=== PATIENT | male | born 1985 | race African-American/Black ===

== ENCOUNTER 2020-12-29 18:38 | Emergency (ER) | payer SELFPAY ==
--- NOTE | ~2020-12-29 | XR_ITS ---
EXAMINATION: CHEST 2 VIEWS CLINICAL INFORMATION: CP . COMPARISON: No recent pertinent prior studies are available for comparison. TECHNIQUE: PA and lateral views of the chest obtained. FINDINGS: The lungs are well expanded. No focal infiltrate, effusion, edema, or pneumothorax. Cardiac and mediastinal silhouettes are within normal limits for technique. No acute bony abnormality seen XR/XR chest 1V IMPRESSION: No evidence of acute disease
--- NOTE | ~2020-12-29 | CT_ITS ---
EXAMINATION: CT ABDOMEN AND PELVIS WITHOUT CONTRAST CLINICAL INFORMATION: Abdominal pain. Hematuria. COMPARISON: None TECHNIQUE: Multidetector volumetric imaging was performed from the superior aspect of the liver through the pubic symphysis. Sagittal and coronal reformatted images were obtained on the technologist's workstation. This CT examination was performed using dose optimization techniques as appropriate, variously including the following: *Automated exposure control *Adjustment of mA and/or kV according to patient size (this includes techniques or standardized protocols for targeted exams where dose is matched to indication/reason for exam; i.e. extremities or head) *Use of iterative reconstruction technique DLP: 331 mGy-cm FINDINGS: LUNG BASES: The visualized lung bases are unremarkable. LIVER, GALLBLADDER, AND BILIARY TREE: The liver is normal in size, shape, and attenuation. No focal hepatic lesion or biliary ductal dilatation is present. Status post cholecystectomy PANCREAS: Unremarkable. SPLEEN: Unremarkable. ADRENAL GLANDS: Unremarkable. KIDNEYS AND URETERS: There is a 2 mm stone in the upper pole of left kidney. Coronal image 70/110 series 7. There is no stone in the right kidney. There is a 1 cm cortical cyst midpole right kidney. No follow-up imaging is recommended for simple renal cyst. No ureteral stone or hydronephrosis. BLADDER: Unremarkable. GASTROINTESTINAL TRACT: The small and large bowel are unremarkable. The appendix is unremarkable. ABDOMINAL WALL: No significant hernia is appreciated. LYMPH NODES: Normal. VASCULAR: Unremarkable. PELVIC VISCERA: Coarse calcifications within the prostate. Prostate measures 4 cm transverse. OSSEOUS STRUCTURES: Unremarkable. CT/CT abdomen pelvis wo con IMPRESSION: 1. No acute abnormality the abdomen or pelvis. 2. There is a 2 mm nonobstructive stone in the left kidney. There are no ureteral calculi and there is no hydronephrosis. Bladder is unremarkable.
[2020-12-29 18:50] VITALS: BMI 23.0
--- NOTE | 2020-12-29 18:51 | ECG_ITS ---
Test Reason : CHEST PAIN Blood Pressure : / mmHG Vent. Rate : 074 BPM Atrial Rate : 074 BPM P-R Int : 154 ms QRS Dur : 088 ms QT Int : 366 ms P-R-T Axes : 068 064 052 degrees QTc Int : 406 ms Normal sinus rhythm Normal ECG No previous ECGs available Referred By: Generic ED Physician Electronically Signed By:ROSELINE EID
[2020-12-29 19:05] LABS: MANUAL DIFF FLAG NO
[2020-12-29 19:09] LABS: Basophils Percent Auto 0.3 % (0-2); Eosinophils Absolute Auto 0.1 X10*3/uL (0.0-0.4); Eosinophils Percent Auto 1.5 % (0-4); Hematocrit 43.2 % (42-52); Hemoglobin 15.3 g/dl (14.0-18.0); Lymphocytes Absolute Auto 0.8 X10*3/uL (1.2-4.9); Lymphocytes Percent Auto 25.8 % (20-40); Mean Corpuscular HGB Conc 35.4 g/dl (31.0-36.0); Mean Corpuscular Hemoglobin 31.4 pg (27.0-33.0); Mean Corpuscular Volume 88.7 fL (80-98); Mean Platelet Volume 9.7 fL (9.4-12.4); Monocytes Absolute Auto 0.5 X10*3/uL (0.1-1.2); Monocytes Percent Auto 14.7 % (2-11); Neutrophils Absolute Auto 1.9 X10*3/uL (2.0-8.3); Neutrophils Percent Auto 57.7 % (45-73); Platelet Count 179 X10*3/uL (160-400); Red Blood Count 4.87 X10*6/uL (4.60-5.80); Red Cell Distribution Width 12.2 % (11.0-16.0); White Blood Count 3.3 X10*3/uL (4.8-10.8)
[2020-12-29 19:19] VITALS: BP 106/66; PULSE 73; RESP 16; TEMP 37.2; O2SAT 99; BMI 20.9
[2020-12-29 19:37] LABS: Anion Gap 13 (12-20); Blood Urea Nitrogen 12 mg/dL (9-16); Calcium 9.4 mg/dL (8.4-10.2); Carbon Dioxide 27 mmol/L (22-29); Chloride 104 mmol/L (96-108); Creatinine Clr Calc Pharmacy 96.9; Estimated Glomerular Filt Rate > 60; Glucose Random 102 mg/dL (60-115); Potassium 4.1 mmol/L (3.3-5.1); Sodium 140 mmol/L (135-145)
[2020-12-29 19:43] LABS: Troponin-I High Sensitivity < 3.5 ng/L (<3.5-35.0)
[2020-12-29 22:16] LABS: Glucose Urine UA NEG (NEG); Leukocyte Esterase Urine NEG (NEG); Nitrite Urine NEG (NEG); UACC Culture Trigger NO; Urine Blood 1+ (NEG); Urine Ketones NEG (NEG); Urine Protein NEG (NEG-TRACE)
[2020-12-29 22:19] LABS: Appearance Urine CLEAR; Color Urine YELLOW
[2020-12-29 22:22] LABS: Bacteria Urine 1+ /LPF; Mucus Urine 1+ /LPF; Squamous Epithelial Cell Urine 1+ /LPF
--- NOTE | 2020-12-29 22:31 | ED_ITS ---
HPI - Chest Pain General Chief Complaint: Chest Pain Stated Complaint: cp Source: patient Mode of arrival: ambulatory Limitations: no limitations History of Present Illness HPI narrative: 35-year-old male presents with diffuse chest pain that started earlier today that gets worse on inspiration. Has had lower abdominal pain for a year however states that his lower back pain on the right side has been persistent and increasing in intensity over the past few days. He does not report any loss of balance, change in vision, palpitations, shortness of breath on exertion, edema, abdominal distention, nausea, vomiting, diarrhea, constipation, or any other concerning symptoms. MD complaint: chest pain Onset (ago): day(s) Timing of current episode: episodic Prior episodes: Yes Pain location: other (Diffuse) Pain radiation: none Severity: moderate Quality: aching Relieving factors: nothing Treatment prior to arrival: none Risk Factors Coronary artery disease risk factors: none Thoracic aortic dissection risk factors: none Related Data Previous Rx's Medication Instructions Recorded ketorolac 10 mg tablet 10 mg PO TID PRN 5 Days #15 tab 12/30/20 tamsulosin 0.4 mg capsule (Flomax) 0.4 mg PO DAILY 14 Days #14 cap 12/30/20 Allergies Allergy/AdvReac Type Severity Reaction Status Date / Time No Known Allergies Allergy Verified 12/29/20 18:51 Review of Systems Review of Systems: Constitutional: Positive Fever, No Chills ENT/Mouth: No Ear Pain, No Hoarseness, No sore throat Eyes: No Eye Pain, No Swelling, No Redness, No Foreign Body Cardiovascular: Positive Chest Pain, No SOB Respiratory: No Cough, No Dyspnea Gastrointestinal: Positive Nausea, No Vomiting, No Diarrhea, positive abdominal Pain, positive flank pain Genitourinary: Positive Dysuria, positive Hematuria Musculoskeletal: positive back pain, No Myalgias, No Joint Swelling Skin: No Skin lacerations, No rash Neuro: No Weakness, No Numbness, No Paresthesias, No Loss of Consciousness, No Dizziness, No Headache Psych: No Anxiety/Panic, No Depression Heme/Lymph: no easy bruising, no Lymphadenopathy Endocrine: No Polyuria, No Polydipsia Yes all other systems are reviewed and are negative PMFSH Past Medical History Attestation statement: The following information was validated with the patient. Source: old records reviewed Medical History FH: cholecystectomy Social History Social History Advance Directives: No Advance Directives Information Provided: Yes Physical Exam Vital Signs: Vital Signs: Last Vital Signs Temp 98.9 F 12/29/20 19:19 Pulse 73 12/29/20 19:19 Resp 16 12/29/20 19:19 BP 106/66 12/29/20 19:19 Pulse Ox 99 12/29/20 19:19 Body Mass Index 20.9 Appearance: Alert. Oriented X3. Mild distress. Head: Normal external exam. Normocephalic. Atraumatic. No Mullins signs noted. No raccoon eyes noted Eyes: PERRLA. EOMI. Conjunctiva and sclera normal. Eyelids normal. ENT: TM's Normal. Pharynx normal. Uvula midline. Moist mucous membranes. No trismus noted. No drooling noted. No muffled voice noted. Neck: Normal inspection. Neck supple. No adenopathy. Thyroid Normal. No meningeal signs. No neck mass noted. CVS: Normal heart rate and rhythm. Heart sound normal. No murmurs noted. Pulses equal to all extremities. Respiratory: No respiratory distress. Painless inspiration. Breath sounds normal. No wheezes/rales/rhonchi noted. Chest nontender. No accessory muscle usage noted or decreased air movement noted. Abdomen: Soft and diffusely tender, positive CVA tenderness to the right side. Bowel sounds normal in all 4 quadrants. No distention noted. No organomegaly noted. No visible injury noted. Genitourinary: No testicular pain or penile discharge, lesions or erythema. Back: Full range of motion noted. Skin: Skin warm and dry. Normal skin color. Normal skin turgor. No rashes/lesions/lacerations noted. Extremities: No lower extremity edema. Extremities exhibit normal range of motion. Extremities nontender. Neuro: cranial nerves 2-12 intact, no focal neural deficits, strength 5/5 to all extremities, No motor deficit. No sensory deficit. Course Course Course Narrative: 35-year-old male presents with chest pain and flank pain. Labs drawn in the emergency department waiting room, urinalysis is positive for heme without nitrates or leukocyte esterase, UA CBC and Chem 7 are otherwise negative. Patient's Physical presentation highly suspicious for renal colic, stone, highly unlikely to be pyelo without elevated white count or positive urine bacteria. Will order CT abdomen pelvis. Heart score 0, wells DVT and PE scores are 0. CT abdomen pelvis indicates renal stone. Will treat with Flomax, Toradol, and refer to Urology. During my discharge instructions patient stated that he does have intermittent episodes of urinary incontinence, stated that these episodes of incontinence started shortly after his cholecystectomy. He does not know if the surgery is related to his symptoms at this time. He does not have any indication of UTI or diabetes, denies risk of STI. Patient verbalized understanding of and agrees plan of care discharge home. MDM - Chest Pain MDM Narrative Medical decision making narrative: Pyelonephritis, renal stone, hydronephrosis, acute abdomen Differential Diagnosis Differential diagnosis: Likely fracture of rib, pneumothorax, atypical chest pain, st elevation myocardial infarction, costochondritis and chest pain Medical Records Data Attestation: I reviewed the patient's medical records. Lab Data Attestation: I reviewed the patient's lab results. Result diagrams: 12/29/20 18:58 12/29/20 18:58 Labs: Lab Results 12/29/20 12/29/20 12/29/20 Range/Units 18:58 18:58 18:58 WBC 3.3 L (4.8-10.8) X10*3/uL RBC 4.87 (4.60-5.80) X10*6/uL Hgb 15.3 (14.0-18.0) g/dl Hct 43.2 (42-52) % MCV 88.7 (80-98) fL MCH 31.4 (27.0-33.0) pg MCHC 35.4 (31.0-36.0) g/dl RDW 12.2 (11.0-16.0) % Plt Count 179 (160-400) X10*3/uL MPV 9.7 (9.4-12.4) fL Immature Gran % (Auto) 0.0 (0.0-0.4) % Neut % (Auto) 57.7 (45-73) % Lymph % (Auto) 25.8 (20-40) % [place] % (Auto) 14.7 H (2-11) % Eos % (Auto) 1.5 (0-4) % Baso % (Auto) 0.3 (0-2) % Lymph # (Auto) 0.8 L (1.2-4.9) X10*3/uL [place] # (Auto) 0.5 (0.1-1.2) X10*3/uL Eos # (Auto) 0.1 (0.0-0.4) X10*3/uL Baso # (Auto) 0.0 (0.0-0.2) X10*3/uL Abs Immat Gran (auto) 0.00 (0.00-0.03) X10*3/uL Absolute Neuts (auto) 1.9 L (2.0-8.3) X10*3/uL Absolute Nucleated RBC 0.000 (0.0-0.012) X10*3/uL Nucleated RBC % (auto) 0.0 (0.0-0.2) /100WBC Sodium 140 (135-145) mmol/L Potassium 4.1 (3.3-5.1) mmol/L Chloride 104 (96-108) mmol/L Carbon Dioxide 27 (22-29) mmol/L Anion Gap 13 (12-20) BUN 12 (9-16) mg/dL Creatinine 0.87 (0.5-1.4) mg/dL Estim Creat Clear Calc 96.9 Estimated GFR > 60 Random Glucose 102 (60-115) mg/dL Calcium 9.4 (8.4-10.2) mg/dL Troponin I High Sens < 3.5 (<3.5-35.0) ng/L Urine Color Urine Appearance Urine pH (5.0-8.0) Ur Specific [place] (1.005-1.025) Urine Protein (NEG-TRACE) MG/DL Urine Glucose (UA) (NEG) MG/DL Urine Ketones (NEG) MG/DL Urine Blood (NEG) Urine Nitrite (NEG) Ur Leukocyte Esterase (NEG) Urine RBC (0) /HPF Urine WBC (0-4) /HPF Ur Squamous Epith Cells /LPF Urine Bacteria /LPF Urine Mucus /LPF 12/29/20 Range/Units 22:06 WBC (4.8-10.8) X10*3/uL RBC (4.60-5.80) X10*6/uL Hgb (14.0-18.0) g/dl Hct (42-52) % MCV (80-98) fL MCH (27.0-33.0) pg MCHC (31.0-36.0) g/dl RDW (11.0-16.0) % Plt Count (160-400) X10*3/uL MPV (9.4-12.4) fL Immature Gran % (Auto) (0.0-0.4) % Neut % (Auto) (45-73) % Lymph % (Auto) (20-40) % [place] % (Auto) (2-11) % Eos % (Auto) (0-4) % Baso % (Auto) (0-2) % Lymph # (Auto) (1.2-4.9) X10*3/uL [place] # (Auto) (0.1-1.2) X10*3/uL Eos # (Auto) (0.0-0.4) X10*3/uL Baso # (Auto) (0.0-0.2) X10*3/uL Abs Immat Gran (auto) (0.00-0.03) X10*3/uL Absolute Neuts (auto) (2.0-8.3) X10*3/uL Absolute Nucleated RBC (0.0-0.012) X10*3/uL Nucleated RBC % (auto) (0.0-0.2) /100WBC Sodium (135-145) mmol/L Potassium (3.3-5.1) mmol/L Chloride (96-108) mmol/L Carbon Dioxide (22-29) mmol/L Anion Gap (12-20) BUN (9-16) mg/dL Creatinine (0.5-1.4) mg/dL Estim Creat Clear Calc Estimated GFR Random Glucose (60-115) mg/dL Calcium (8.4-10.2) mg/dL Troponin I High Sens (<3.5-35.0) ng/L Urine Color YELLOW Urine Appearance CLEAR Urine pH 6.0 (5.0-8.0) Ur Specific [place] 1.020 (1.005-1.025) Urine Protein NEG (NEG-TRACE) MG/DL Urine Glucose (UA) NEG (NEG) MG/DL Urine Ketones NEG (NEG) MG/DL Urine Blood 1+ H (NEG) Urine Nitrite NEG (NEG) Ur Leukocyte Esterase NEG (NEG) Urine RBC 5-9 H (0) /HPF Urine WBC 1-4 (0-4) /HPF Ur Squamous Epith Cells 1+ /LPF Urine Bacteria 1+ /LPF Urine Mucus 1+ /LPF Imaging Data Chest x-ray: Attestation: I personally reviewed and interpreted this imaging study as follows: Radiologist's impression: COMPARISON: No recent pertinent prior studies are available for comparison. TECHNIQUE: PA and lateral views of the chest obtained.? FINDINGS: The lungs are well expanded. No focal infiltrate, effusion, edema, or pneumothorax. Cardiac and mediastinal silhouettes are within normal limits for technique. No acute bony abnormality seen XR/XR chest 1V IMPRESSION: No evidence of acute disease CT scan - abdomen: Attestation: I personally reviewed and interpreted this imaging study as follows: Radiologist's impression: FINDINGS: LUNG BASES: The visualized lung bases are unremarkable.? LIVER, GALLBLADDER, AND BILIARY TREE: The liver is normal in size, shape, and attenuation. No focal hepatic lesion or biliary ductal dilatation is present. Status post cholecystectomy? PANCREAS: Unremarkable.? SPLEEN: Unremarkable.? ADRENAL GLANDS: Unremarkable.? KIDNEYS AND URETERS: There is a 2 mm stone in the upper pole of left kidney. Coronal image 70/110 series 7. There is no stone in the right kidney. There is a 1 cm cortical cyst midpole right kidney. No follow-up imaging is recommended for simple renal cyst. No ureteral stone or hydronephrosis. BLADDER: Unremarkable.? GASTROINTESTINAL TRACT: The small and large bowel are unremarkable. The appendix is unremarkable.? ABDOMINAL WALL: No significant hernia is appreciated.? LYMPH NODES: Normal. VASCULAR: Unremarkable. PELVIC VISCERA: Coarse calcifications within the prostate. Prostate measures 4 cm transverse.? OSSEOUS STRUCTURES: Unremarkable.? CT/CT abdomen pelvis wo con IMPRESSION: 1. No acute abnormality the abdomen or pelvis. ? 2. There is a 2 mm nonobstructive stone in the left kidney. There are no ureteral calculi and there is no hydronephrosis. Bladder is unremarkable.? ECG Data ECG #1: Attestation: I personally reviewed and interpreted this ECG as follows: ECG interpretation date: 12/29/20 ECG interpretation time: 18:46 Prior ECG tracings: not available for review Interpretation: Ventricular rate 74 beats per minute, MN 154, QRS 88, QT 366, QTC 406, normal sinus rhythm normal EKG, prior EKG is unavailable secondary to system 130 error Scores Heart Score History: -0- slightly suspicious ECG: -0- normal Age: -0- < or = 45 Risk factory: -0- no risk factors known Troponin: -0- < or = normal limit Score: 0 Risk: 1.7% Discharge Plan Discharge Clinical Impression: Atypical chest pain, Kidney stone Patient Disposition: Home, Self-Care Instructions: Kidney Stones (ED), Flank Pain (ED), Noncardiac Chest Pain (ED) Additional Instructions: You were evaluated for chest pain. EKG was normal sinus rhythm, troponins which are cardiac enzymes are negative. Chest x-ray and CT scan are negative for acute findings of the lungs. You were also evaluated for right-sided flank pain. CT scan indicates a nonobstructing renal stone to the right side. Please follow-up with Urology as an outpatient. Please also let them know that you have been struggling with intermittent urinary incontinence since your cholecystectomy. I referred you to Dr. Grey I prescribed Flomax. Please take this medication once a day in the morning e very day for the next 14 days. Please drink plenty of fluids. Thank you for choosing this emergency department for evaluation. Please follow-up with primary care physician as needed. Return to the emergency department for any new, concerning, or worsening symptoms. Prescriptions: New tamsulosin [Flomax] 0.4 mg capsule 0.4 mg PO DAILY 14 Days Qty: 14 RF: 0 ketorolac 10 mg tablet 10 mg PO TID PRN (Reason: pain) 5 Days Qty: 15 RF: 0 Referrals: Keaton Grey MD [Physician] - 2 days (Kidney stones, intermittent urinary incontinence)
[2020-12-30] MEDS: Tamsulosin HCL 0.4 MG CAPSULE PO (00:42)
[2020-12-30] MEDS: Ketorolac Tromethamine 60 MG/2 ML VIAL IM (00:43)
[2020-12-30 00:55] VITALS: BP 104/60; PULSE 54; RESP 16; TEMP 36.9; O2SAT 98
== END 2020-12-30 01:07 | disposition home or self-care (01) ==
PROVIDERS: Emergency Provider Emergency Medicine
DX: R07.89 Other chest pain (principal); N20.0 Calculus of kidney
CPT/HCPCS: 36415; 71045; 74176; 80048; 81001; 84484; 85025; 93005; 96372; 99284; J1885

== ENCOUNTER → 2021-03-08 10:02 | Outpatient (BNVA) | payer MEDICAID, SELFPAY | PROVIDERS: Visit Provider Urology | DX: N20.0 Calculus of kidney (principal) | CPT/HCPCS: 99202 ==

== ENCOUNTER 2021-03-14 10:18 | Outpatient (REF) | payer MEDICAID, SELFPAY ==
--- NOTE | ~2021-03-14 | XR_ITS ---
EXAMINATION: XR CHEST CLINICAL INFORMATION: Abnormal weight loss COMPARISON: Previous chest x-ray December 2020 TECHNIQUE: 2 views of the chest were obtained. FINDINGS: No significant abnormality is noted involving the heart, lungs, mediastinum, bony thorax or soft tissues. XR/XR chest 2V IMPRESSION: Unremarkable examination.
== END 2021-03-14 10:19 | disposition home or self-care (01) ==
LOC: HO.XRAY 10:18
PROVIDERS: Absent Provider Registered Nurse; PCP Registered Nurse; Visit Provider Internal Medicine Geriatric Medicine
DX: R63.4 Abnormal weight loss (principal)
CPT/HCPCS: 71046

== ENCOUNTER 2021-05-08 14:08 | Outpatient (REF) | payer MEDICAID, SELFPAY ==
--- NOTE | ~2021-05-08 | US_ITS ---
EXAMINATION: US SOFT TISSUE, LIMITED/FOLLOW UP CLINICAL INFORMATION: Lymphadenopathy COMPARISON: CT abdomen pelvis on 12/29/2020 TECHNIQUE: Limited sonogram of the superficial soft tissues bilateral groin assessing grayscale and color Doppler flow. FINDINGS: In the bilateral inguinal regions, there are multiple prominent lymph nodes. All of them have normal morphology, however some are slightly enlarged. The largest on the right measures 2.5 x 0.4 x 0.6 cm. The largest on the left measures 1.7 x 0.3 x 1.0 cm. US/US pelvic limited IMPRESSION: Bilateral inguinal lymphadenopathy. Consider short interval follow-up or biopsy for further evaluation.
== END 2021-05-08 14:09 | disposition home or self-care (01) ==
LOC: HO.US 14:08
PROVIDERS: PCP Registered Nurse; Visit Provider Registered Nurse
DX: R59.0 Localized enlarged lymph nodes (principal)
CPT/HCPCS: 76536; 76857

== ENCOUNTER 2021-06-07 13:20 | Outpatient (REF) | payer MEDICAID, SELFPAY ==
[2021-06-08 11:03] LABS: H Pylori Breath Test Negative (Negative)
== END 2021-06-07 13:21 | disposition home or self-care (01) ==
LOC: HO.LAB 13:20
PROVIDERS: PCP Registered Nurse; Referring Provider Registered Nurse; Visit Provider Nurse Practitioner Family
DX: K58.1 Irritable bowel syndrome with constipation (principal); K58.0 Irritable bowel syndrome with diarrhea; R14.0 Abdominal distension (gaseous); K21.9 Gastro-esophageal reflux disease without esophagitis; K59.01 Slow transit constipation; E55.9 Vitamin D deficiency, unspecified; R10.11 Right upper quadrant pain; R10.9 Unspecified abdominal pain
CPT/HCPCS: 36415; 82306; 82607; 82746; 83013; 83690; 84443; 86364; 99202

== ENCOUNTER 2021-06-07 14:27 | Outpatient (REF) | payer MEDICAID, SELFPAY ==
[2021-06-07 15:25] LABS: Lipase 165 U/L (8-78)
[2021-06-07 15:46] LABS: TSH reflex Free T4 1.33 uIU/mL (0.32-4.0)
[2021-06-07 15:58] LABS: Folate 18.7 ng/mL (> or = 4.0); Vitamin B12 299 pg/mL (200-900)
[2021-06-08 15:41] LABS: Transglutaminase Ab IgG <1.0 U/mL; Transglutaminase IgA <1.0 U/mL
[2021-06-11 15:32] LABS: Vitamin D 25-OH, D2 11 ng/mL; Vitamin D 25-OH, D3 12 ng/mL; Vitamin D 25-OH, Total 23 ng/mL (30-100)
== END 2021-06-07 14:28 | disposition home or self-care (01) ==
LOC: HO.LAB 14:27
PROVIDERS: Visit Provider Nurse Practitioner Family
DX: E55.9 Vitamin D deficiency, unspecified (principal); R10.11 Right upper quadrant pain; R19.7 Diarrhea, unspecified; R14.0 Abdominal distension (gaseous); Z12.11 Encounter for screening for malignant neoplasm of colon
CPT/HCPCS: 36415; 82306; 82607; 82746; 83690; 84443; 86364

== ENCOUNTER 2021-06-08 10:12 | Outpatient (REF) | payer MEDICAID, SELFPAY ==
--- NOTE | ~2021-06-08 | US_ITS ---
EXAMINATION: US ABDOMEN COMPLETE CLINICAL INFORMATION: Abdominal pain. Elevated serum lipase.. COMPARISON: Previous CT of the abdomen and pelvis December 2020 TECHNIQUE: Real-time imaging of the abdominal viscera. FINDINGS: PANCREAS: Normal. ABDOMINAL AORTA: The proximal, mid, and distal segments are normal in caliber. INFERIOR VENA CAVA: Visualized portions are normal. LIVER: Normal. The liver is normal in size. The liver contour is normal. Parenchymal echogenicity is normal. No focal hepatic lesion. There is no intrahepatic biliary duct dilatation seen. GALLBLADDER: Surgically removed. COMMON BILE DUCT: Normal in caliber measuring 0.2 cm in diameter. RIGHT KIDNEY: There is a 1.5 cm complex cyst in the mid pole of the right kidney with several echogenic foci questionable for calcifications. This is similar in size to December 2020 CT scan. No hydronephrosis. No renal calculi or focal parenchymal lesions. The kidney measures 11 cm in maximum dimension. LEFT KIDNEY: Normal. No hydronephrosis. No renal calculi or focal parenchymal lesions. The kidney measures 11 cm in maximum dimension. SPLEEN: Normal. The spleen measures 9 cm in maximum dimension. FREE FLUID: None. US/US abdomen complete IMPRESSION: Normal-appearing pancreas. 1.5 cm complex cyst in the right kidney.
== END 2021-06-08 10:13 | disposition home or self-care (01) ==
LOC: HO.HMGCX 10:12
PROVIDERS: Visit Provider Nurse Practitioner Family
DX: R10.9 Unspecified abdominal pain (principal); R74.8 Abnormal levels of other serum enzymes; N28.1 Cyst of kidney, acquired
CPT/HCPCS: 76700

== ENCOUNTER 2021-06-30 10:28 | Outpatient (REF) | payer MEDICAID, SELFPAY ==
[2021-06-30 11:12] LABS: COVID-19 Test Negative (Negative); IDNOW Serial# 16C4AD1C
== END 2021-06-30 10:29 | disposition home or self-care (01) ==
LOC: HO.LAB 10:28
PROVIDERS: Visit Provider Internal Medicine
DX: Z20.822 Contact with and (suspected) exposure to COVID-19 (principal)
CPT/HCPCS: 87635; C9803

== ENCOUNTER 2021-07-26 13:27 | Outpatient (REF) | payer MEDICAID, SELFPAY ==
[2021-07-26 15:18] LABS: Lipase 34 U/L (8-78)
== END 2021-07-26 13:28 | disposition home or self-care (01) ==
LOC: HO.LAB 13:27
PROVIDERS: PCP Registered Nurse; Visit Provider Nurse Practitioner Family
DX: K58.2 Mixed irritable bowel syndrome (principal); K85.90 Acute pancreatitis without necrosis or infection, unspecified; K21.9 Gastro-esophageal reflux disease without esophagitis; R14.0 Abdominal distension (gaseous); R19.7 Diarrhea, unspecified
CPT/HCPCS: 36415; 83690; 99212

== ENCOUNTER 2021-07-31 11:47 | Outpatient (REF) | payer MEDICAID, SELFPAY ==
[2021-08-05 17:51] LABS: Pancreatic Elastase-1 63 mcg/g
== END 2021-07-31 11:48 | disposition home or self-care (01) ==
LOC: HO.LNP 11:47
PROVIDERS: Visit Provider Nurse Practitioner Family
DX: R19.7 Diarrhea, unspecified (principal)
CPT/HCPCS: 82656

== ENCOUNTER → 2021-09-07 15:04 | Outpatient (BNVA) | payer MEDICAID, SELFPAY | PROVIDERS: PCP Registered Nurse; Referring Provider Registered Nurse; Visit Provider Surgery | DX: R59.0 Localized enlarged lymph nodes (principal) | CPT/HCPCS: 99202 ==

== ENCOUNTER 2021-09-27 05:57 | Day surgery (SDC) | payer MEDICAID, SELFPAY ==
--- NOTE | 2021-09-26 09:04 | P.CONAN_ITS ---
Documented by User: Ilene Larson NP 09/26/21 09:07 HPI - Anesthesia Eval Consult details Narrative: 36yo M for Right Excision of inguinal lymph node PMFSH Active Problems Active Problems: All Active Problems (Updated 09/21/21 @ 09:53 by Ileana Colon, RN) Nephrolithiasis (Acute) Inguinal lymphadenopathy (Acute) Past Medical History Medical History (Updated 09/21/21 @ 09:53 by Ileana Colon, RN) FH: cholecystectomy GERD (gastroesophageal reflux disease) IBS (irritable bowel syndrome) Kidney stone Family History Family History Maternal Grandfather HTN (hypertension) Paternal Grandfather Diabetes Surgical History Surgical History History of umbilical hernia repair Hx of cholecystectomy Social History Social History Patient Tobacco Use Status: Never used Tobacco Use of substances other than those prescribed or required for medical reasons: No Advance Directives: No Advance Directives Information Provided: Yes Meds Allergies Allergy/AdvReac Type Severity Reaction Status Date / Time No Known Allergies Allergy Verified 09/07/21 15:13 Exam Exam Date and Time: September 26, 2021 0904 Pertinent Lab Results Pertinent Lab Results: Laboratory Tests 12/29/20 12/29/20 18:58 18:58 WBC 3.3 L Hgb 15.3 Hct 43.2 Plt Count 179 Sodium 140 Potassium 4.1 Chloride 104 Carbon Dioxide 27 BUN 12 Creatinine 0.87 Narrative Narrative: EKG 12/2020 Vent. Rate : 074 BPM ? ? Atrial Rate : 074 BPM ?? P-R Int : 154 ms? QRS Dur : 088 ms ? ? QT Int : 366 ms ? ? ? P-R-T Axes : 068 064 052 degrees ?? QTc Int : 406 ms ? Normal sinus rhythm Normal ECG No previous ECGs available Assessment and Plan Assessment Anesthesia Assessment: Chart Reviewed Documented by User: Papo Warner MD 09/27/21 07:19 [facility] Past Medical History Medical History (Updated 09/21/21 @ 09:53 by Ileana Colon, CRISTINA) FH: cholecystectomy GERD (gastroesophageal reflux disease) IBS (irritable bowel syndrome) Kidney stone Family History Family History Maternal Grandfather HTN (hypertension) Paternal Grandfather Diabetes Family history of problems with anesthesia: No Surgical History Surgical History History of umbilical hernia repair Hx of cholecystectomy History of Problems with Anesthesia: No Social History Social History Patient Tobacco Use Status: Never used Tobacco Use of substances other than those prescribed or required for medical reasons: No Advance Directives: No Advance Directives Information Provided: Yes Meds Allergies Allergy/AdvReac Type Severity Reaction Status Date / Time No Known Allergies Allergy Verified 09/07/21 15:13 Exam Airway Mallampati Class: I TM Dist: >3cm Neck ROM: Full Loose/Missing/Broken Teeth: No Heart: ok Lungs: ok Assessment and Plan Final Anesthetic Review Family History of Problems with Anesthesia: No History of Problems with Anesthesia: No NPO: Yes ASA Class: I Final Preanesthetic Review: No Changes in Pt Med Stat, Meds/Allgs Chart Reviewed, Consent Obtained/Reviewed and Anes Risks/Benef Reviewed Patient Risk: Low Procedure Risk: Low Anesthetic Plan Anesthetic Plan: GA and Agree w/ Assess. and Plan Disposition: Standard PACU
[2021-09-27 06:10] VITALS: BP 112/65; PULSE 74; RESP 15; TEMP 36.8; O2SAT 99; BMI 23.7
[2021-09-27] MEDS: Lactated Ringers 1,000 ML 100 ML IVCONT (06:28)
--- NOTE | 2021-09-27 08:04 | W.PM.OPN ---
Operative Note Operative Note Date of Service: 09/27/21 Narrative: Preoperative diagnosis:Right inguinal lymphadenopathy Postoperative diagnosis:same Procedure:Excision of right inguinal lymph node Surgeon: Yury Branch MD Business Liaison Manager: none Anesthesia:General LMA Indications for procedure:36-year-old male patient presenting with a palpable right inguinal hernia. Workup with ultrasound of the pelvis revealed multiple large inguinal lymph nodes bilaterally. He presents today for lymph node biopsy. Operative findings: Moderately enlarged lymph node of the right inguinal region located just above the inguinal crease. Specimen: Right inguinal lymph node Estimated blood loss: less than 1 mL Complications: none Procedure details: patient was brought to the OR placed in a supine position. After administering general anesthesia the patient's abdomen was prepped with ChloraPrep and draped in a sterile fashion. A surgical time-out was called the consent confirmed. Patient received preoperative antibiotics and Venodyne boots were in place. Local anesthesia consisting of 0.25% Sensorcaine was infiltrated over the right inguinal ligament at the site of the palpable lymph node. Incision was then made with a scalpel a transverse fashion. This was carried out through subcutaneous tissue past Kurt's fashion up to the palpable lymph node. A combination of sharp and blunt dissection was then used to dissect free the lymph node. Hemostasis was assured using electrocautery. The lymph node was passed off the table and sent immediately to pathology for further examination. After assuring adequate hemostasis the Kurt's fascia was reapproximated using interrupted 3-0 Polysorb sutures. Dermis was reapproximated using interrupted 3-0 Polysorb sutures. Skin was closed using a running subcuticular 4-0 Polysorb suture. Steri-Strips, 2 x 2 gauze and Tegaderm were then applied. The patient tolerated the procedure well. Sponge, instrument, and needle counts reported as correct. Patient was transferred to PACU in stable condition.
[2021-09-27 08:05] VITALS: BP 85/50; PULSE 80; RESP 16; TEMP 36.8; O2SAT 99
[2021-09-27 08:10] VITALS: BP 111/64; PULSE 68; RESP 16; O2SAT 99
[2021-09-27 08:15] VITALS: BP 98/65; PULSE 64; RESP 16; O2SAT 99
[2021-09-27 08:30] VITALS: BP 105/68; PULSE 66; RESP 16; TEMP 36.6; O2SAT 99
== END 2021-09-27 08:45 | disposition home or self-care (01) ==
PROVIDERS: PCP Registered Nurse; Visit Provider Surgery
PROC: (CPT 38531; principal; 2021-09-27 07:30)
DX: R59.0 Localized enlarged lymph nodes (principal); K58.9 Irritable bowel syndrome, unspecified; K21.9 Gastro-esophageal reflux disease without esophagitis; Z79.899 Other long term (current) drug therapy; Z87.442 Personal history of urinary calculi; Z90.49 Acquired absence of other specified parts of digestive tract; Z98.890 Other specified postprocedural states
CPT/HCPCS: 38531; 36415; 88184; 88185; 88305; J0690; J1885; J2250; J2795; J3010

== ENCOUNTER → 2021-10-06 09:46 | Outpatient (BNVA) | payer MEDICAID, SELFPAY | PROVIDERS: PCP Registered Nurse; Referring Provider Registered Nurse; Visit Provider Surgery | DX: Z48.817 Encounter for surgical aftercare following surgery on the skin and subcutaneous tissue (principal); Z87.2 Personal history of diseases of the skin and subcutaneous tissue | CPT/HCPCS: 99212 ==

== ENCOUNTER → 2021-10-16 10:01 | Outpatient (BNVA) | payer MEDICAID, SELFPAY | PROVIDERS: PCP Registered Nurse; Referring Provider Registered Nurse; Visit Provider Surgery | DX: Z13.89 Encounter for screening for other disorder (principal) ==

== ENCOUNTER → 2021-10-17 10:30 | Outpatient (BNVA) | payer MEDICAID, SELFPAY | PROVIDERS: PCP Registered Nurse; Referring Provider Registered Nurse; Visit Provider Surgery | DX: Z13.89 Encounter for screening for other disorder (principal) ==

== ENCOUNTER 2021-10-20 11:56 | Outpatient (REF) | payer MEDICAID, SELFPAY ==
--- NOTE | ~2021-10-20 | XR_ITS ---
EXAMINATION: XR CERVICAL SPINE CLINICAL INFORMATION: Neck pain COMPARISON: None TECHNIQUE: 5 views of the cervical spine were obtained. FINDINGS: Bone alignment is normal. No fracture or dislocation is seen. Disc spaces are normal. There is right-sided neuroforaminal narrowing from bony osteophyte at C2-C3 C3-C4 and C4-C5. There is left-sided neuroforaminal narrowing from bony osteophyte at C3-C4. Prevertebral soft tissues are normal. XR/XR cervical spine 4V IMPRESSION: Bilateral neuroforaminal narrowing from bony osteophyte, right greater than left
== END 2021-10-20 11:57 | disposition home or self-care (01) ==
LOC: HO.XRAY 11:56
PROVIDERS: Visit Provider Registered Nurse
DX: M54.2 Cervicalgia (principal)
CPT/HCPCS: 72050

== ENCOUNTER 2022-01-26 10:59 | Outpatient (REF) | payer MEDICAID, SELFPAY ==
[2022-01-26 12:18] LABS: Lipase 25 U/L (8-78)
== END 2022-01-26 11:00 | disposition home or self-care (01) ==
LOC: HO.LAB 10:59
PROVIDERS: PCP Registered Nurse; Visit Provider Nurse Practitioner Family
DX: R10.9 Unspecified abdominal pain (principal); K86.89 Other specified diseases of pancreas; R14.0 Abdominal distension (gaseous)
CPT/HCPCS: 36415; 83690; 99212

== ENCOUNTER → 2022-07-19 10:41 | Outpatient (BNVA) | payer MEDICAID, SELFPAY | PROVIDERS: PCP Registered Nurse; Visit Provider Nurse Practitioner Family | DX: K86.89 Other specified diseases of pancreas (principal); K58.1 Irritable bowel syndrome with constipation; R14.0 Abdominal distension (gaseous) | CPT/HCPCS: 99212 ==

== ENCOUNTER 2022-10-22 08:48 | Outpatient (REF) | payer MEDICAID, SELFPAY ==
--- NOTE | ~2022-10-22 | CT_ITS ---
EXAMINATION: CT ABDOMEN AND PELVIS WITH CONTRAST CLINICAL INFORMATION: Abdominal pain COMPARISON: Previous abdominal ultrasound May 2021, pelvic ultrasound April [address] of the abdomen and pelvis December 2020 TECHNIQUE: Multidetector volumetric images were obtained from the superior aspect of the liver through the pubic symphysis following administration 85 mL of Omnipaque 350 intravenous contrast. Sagittal and coronal reformatted images were obtained on the technologist's workstation. Oral contrast: Yes This CT examination was performed using dose optimization techniques as appropriate, variously including the following: *Automated exposure control *Adjustment of mA and/or kV according to patient size (this includes techniques or standardized protocols for targeted exams where dose is matched to indication/reason for exam; i.e. extremities or head) *Use of iterative reconstruction technique DLP: 413 mGy-cm FINDINGS: LUNG BASES: The visualized lung bases are unremarkable. LIVER, GALLBLADDER, AND BILIARY TREE: The liver is normal in size, shape, and attenuation. Small 5 mm low-attenuation lesion in the right lobe of the thorax. Probably represents a cyst. No other focal hepatic lesion or biliary ductal dilatation is present. The gallbladder has been removed. PANCREAS: Unremarkable. SPLEEN: Unremarkable. ADRENAL GLANDS: Unremarkable. KIDNEYS AND URETERS: 3 mm stone in the upper pole of the left kidney. Small 1 cm right renal cyst. No imaging follow-up recommended. The kidneys are otherwise normal.. BLADDER: Unremarkable. GASTROINTESTINAL TRACT: Stool in the colon suggestive of mild constipation. The small and large bowel are otherwise. The appendix is unremarkable. ABDOMINAL WALL: No significant hernia is appreciated. LYMPH NODES: Normal. VASCULAR: Unremarkable. PELVIC VISCERA: Unremarkable. OSSEOUS STRUCTURES: Unremarkable. CT/CT abdomen pelvis w IV con IMPRESSION: No acute findings. Constipation. Fleischner guidelines were followed.
[2022-10-22] MEDS: iohexoL 350 MG/ML 100 ML INFUS..BTL IV (10:50)
[2022-10-22] MEDS: Barium Sulfate Oral (Mocha) 450 ML ORAL.SUSP 900 ML PO (10:59)
== END 2022-10-22 08:49 | disposition home or self-care (01) ==
LOC: HO.CT 08:48
PROVIDERS: PCP Registered Nurse; Visit Provider Nurse Practitioner Family
DX: R10.9 Unspecified abdominal pain (principal)
CPT/HCPCS: 74177; Q9967

== ENCOUNTER 2023-01-30 | Outpatient (REF) | payer MEDICAID, SELFPAY ==
[2023-01-31 16:34] LABS: Influenza A PCR NEGATIVE (Negative); Influenza B PCR NEGATIVE (Negative); Resp Syncy Virus RNA Qual PCR NEGATIVE (Negative); SARS COV2 PCR INHOUSE NEGATIVE (Negative)
== END 2023-01-30 00:01 | disposition home or self-care (01) ==
LOC: HO.HHCLNP
PROVIDERS: Visit Provider Registered Nurse
DX: R53.83 Other fatigue (principal); Z20.822 Contact with and (suspected) exposure to COVID-19
CPT/HCPCS: 0241U

== ENCOUNTER 2023-04-29 13:08 | Outpatient (REF) | payer MEDICAID, SELFPAY ==
--- NOTE | ~2023-04-29 | XR_ITS ---
EXAMINATION: XR CERVICAL SPINE CLINICAL INFORMATION: Bilateral neck pain. COMPARISON: Radiographs dated 10/25/2021. TECHNIQUE: 6 views of the cervical spine, inclusive of flexion and extension views, were obtained. FINDINGS: The vertebral alignment is normal. No intrinsic bony abnormality. The disc heights and neural foramina are well maintained. The endplates and posterior elements are normal. No fracture or subluxation. The surrounding prevertebral soft tissues are unremarkable. XR/XR cervical spine 5V IMPRESSION: Unremarkable examination.
[2023-04-29 14:52] LABS: Cholesterol 279 mg/dL (<200); HDL Cholesterol 62 mg/dL (>40); LDL Cholesterol Calculated 199 mg/dL (<100); Triglycerides 93 mg/dL (<150)
== END 2023-04-29 13:09 | disposition home or self-care (01) ==
LOC: HO.XRAY 13:08
PROVIDERS: PCP Registered Nurse; Visit Provider Registered Nurse
DX: M54.2 Cervicalgia (principal); Z00.00 Encounter for general adult medical examination without abnormal findings
CPT/HCPCS: 36415; 72050; 80061

== ENCOUNTER 2024-02-14 10:26 | Outpatient (REF) | payer MEDICAID, SELFPAY ==
--- NOTE | ~2024-02-14 | US_ITS ---
EXAMINATION: US RETROPERITONEAL LIMITED (RENAL ONLY) CLINICAL INFORMATION: Hematuria. Right flank/abdominal pain x2 weeks. Evaluate for kidney stones. COMPARISON: CT abdomen and pelvis 10/22/2022. Ultrasound abdomen complete 06/08/2021. TECHNIQUE: Real-time imaging of the kidneys. FINDINGS: RIGHT KIDNEY: 11.4 x 5.4 x 6.5 cm (SAG x AP x TRV). The kidney is normal in size, contour, and echogenicity. Renal cortical thickness is normal. No calculi or focal parenchymal lesions. No hydronephrosis. LEFT KIDNEY: 11.9 x 6.4 x 4.8 cm (SAG x AP x TRV). The kidney is normal in size, contour, and echogenicity. Renal cortical thickness is normal. There is a mid renal 5 mm echogenic focus present, without twinkle artifact or shadowing. This could represent a calculus, as a 3 mm calculus was seen on the 2022 CT scan. No hydronephrosis. A benign small 0.6 cm Bosniak class I renal cyst is noted at the lower pole which requires no additional imaging or follow up. No solid renal masses are seen. ADDITIONAL FINDINGS: Incidental note is made of an echogenic liver, consistent with hepatic steatosis. US/US renal BI IMPRESSION: 1. Possible 5 mm left mid renal calculus. 2. Incidentally noted hepatic steatosis. Electronically signed by: Slade Pascal MD 04/16/2024 12:03 AM [facility]
== END 2024-02-14 10:27 | disposition home or self-care (01) ==
LOC: HO.US 10:26
PROVIDERS: PCP Registered Nurse; Visit Provider Internal Medicine
DX: R10.9 Unspecified abdominal pain (principal); R31.29 Other microscopic hematuria
CPT/HCPCS: 76775

== ENCOUNTER 2024-06-05 15:43 | Outpatient (AMB) | payer MEDICAID, SELFPAY ==
--- NOTE | 2024-06-05 15:57 | MHC.OFFVIS ---
Intake Visit Reasons: Nephrolithiasis Intake Note: Patient is present for NEPHROLITHIASIS Urology Medication:TAMSULOSIN Antibiotic Allergy:NONE Blood Thinner:NONE Tray Filler Required: No Allergies No Known Allergies Allergy (Verified 06/05/24 15:58) HPI Comments Details: Sharad is a pleasant male. He is seen for the following urologic conditions - nephrolithiasis has not been seen in office for 3 years recent ultrasound showed small possible stone left side had been accompanied by hematuria which resolved ultrasound also states hepatic steatosis has had minimal symptoms on exam has pain at ribs given prescription for Celebrex he would prefer to follow p.r.n. Nephrolithiasis No prior diagnosis Strong family history with sister and mother to make stones Seen in emergency room from abdominal pain Imaging - 03/02 CT scan 2 mm right kidney stone PFSH Medical History FH: cholecystectomy GERD (gastroesophageal reflux disease) IBS (irritable bowel syndrome) Kidney stone Pancreatic insufficiency Surgical History History of lymph node excision (09/27/21) History of umbilical hernia repair Hx of cholecystectomy Family History Maternal Grandfather HTN (hypertension) Paternal Grandfather Diabetes Social History Patient Tobacco Use Status: Never used Tobacco Review of Systems Const Denies chills and Denies fever(s) Card Reports no additional complaints and Denies syncope Resp Denies cough GI Denies abdominal pain and Denies heartburn Reports as per HPI and Denies change in libido Neuro Denies syncope Psych Denies change in libido Endo Denies change in libido Physical Exam Const General: cooperative, healthy appearing, comfortable and no acute distress Orientation/consciousness: patient oriented x3 HEENT Face and sinus: Yes normal facial exam Mouth: moist mucous membranes Neck Neck: Yes normal visual inspection, Yes full ROM and Yes trachea midline Chest Chest palpation & inspection: normal inspection of the chest Resp Effort & Inspection: normal respiratory effort, able to speak in complete sentences and no respiratory distress GI Inspection: Yes normal to inspection Back/Spine/Pelvis Cervical Spine: normal cervical lordosis Thoracic/Lumbar Spine: thoracic and lumbar spine normal to inspection Skin General skin exam: no rashes or lesions noted Neuro General: patient oriented x3, gait normal, tone normal and moves all extremities Extrem General: Yes normal to inspection and Yes capillary refill normal Assessment & Plan Assessment & Plan (1) Rib tenderness: Code(s): R07.81 - Pleurodynia Category: Medical Plan p.r.n. follow-up Medications: New meloxicam 15 mg PO DAILY 30 tabs 0RF 30 days R07.81 - Pleurodynia Patient Instructions: This note is constructed using voice recognition software. While every effort has been made to ensure accuracy etcher apprentice errors may have been included. Imaging studies, laboratory and physical exam results were discussed and reviewed in detail. No major barriers to patient understanding were identified. An opportunity to ask questions regarding the treatment plan was provided. All questions were answered. The patient expressed understanding and agreement with the above treatment plan. The patient is aware they should contact our office by phone for worsening of their current condition or the appearance of new urologic symptoms. Compliance is encouraged with any medications and followup testing that is ordered. It is a privilege to participate in the urologic care of your patient. If you have any questions or concerns regarding treatment for the above conditions, or other urologic issues, please do not hesitate to contact me. The office telephone contact is [phone]. Sincerely, Dr Keaton Grey MD, [facility] - Urology Compassionate Specialist Care for the Genitourinary System Coding Level of Care Code New Pt Level 3 (45265) Diagnoses Rib tenderness R07.81
--- OUTSIDE RECORDS SUMMARY | 2024-06-05 16:34 | XMS_ITS | Clinical Summary ---
Author Organization [employer] Address [address] [facility] [address] [place] [address] Care Team Providers Care Product Specialist Name Role Phone [facility] Primary Care Provider Allergies No known active allergies Medications Creon [id number] units capsule delayed-release particles capsule TAKE 1 CAPSULE BY MOUTH FOUR TIMES A DAY WITH MEALS AND/OR SNACKS 3 Active rosuvastatin (Crestor) 20 MG tabletIndications:M ixed hyperlipidemia Take 1 tablet (20 mg) by mouth in the morning. 90 tablet 3 4 Active Active Problems Problem Noted Date Diagnosed Date Flank pain 01/08/2024 Assessment & Plan (01/08/2024 11:43 AM EDT): - r/o urolithiasis, order renal ultrasound - start Meloxicam daily x 2 weeks + Tylenol PRN - re-consult PRN worsening of pain, fever, UTI symtoms, severe nausea - use prescription for Flomax at bedtime x2 weeks, up to a month if eneded and f/u with PCP Other microscopic hematuria 01/08/2024 Assessment & Plan (01/08/2024 11:40 AM EDT): - r/o kidney stones, see above Pancreatic function test outside reference range 11/16/2021 Localized enlarged lymph nodes 10/02/2021 Overview (05/15/2023): Dr. Bush at [facility] 09/2021. 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 Encounters Date Type Department Care Team Description 04/29/2024 Telephone [facility] [address] [place] [address] Carine Bay, senior sharepoint developer placed 04/29/2024 Orders Only [facility] [address] [place] [address] Crystal Bueno, CONVEYOR WORKER Renal stones (Primary Dx) 04/29/2024 Telephone [facility] [address] [place] [address] Carine Bay, CRISTINA Results 04/17/2024 Telephone [facility] [address] [place] [address] MylesCrystal lauren FNP Results; Referral from Last 3 Months Social History Tobacco Use Types Packs/Day Years Used Date Smoking Tobacco: Never Tobacco Cessation:Counseling Given: Not Answered Alcohol Use Standard Drinks/Week Comments Never 0 (1 standard drink = 0.6 oz pur e alcohol) Depression Answer Date Recorded Patient Health Questionnaire-9 Score 0 04/29/2023 Patient Health Questionnaire-9 Score 0 04/29/2023 Last PHQ-9: Questionnaire Data Not on file 1 06/30/2022 Housing Stability Answer Date Recorded What is your housing situation today? I have [place] 04/29/[address] you li ve. Do you have problems with any of the following? None of the above 04/29/2023 Food Insecurity Answer Date Recorded Within the past 12 months, y ou worried that your food would run out before you got money to buy more: Never True 04/29/2023 Within the past 12 months,th e food you bought just didn't last and you didn't have enough money to get more: Never True Transportation Answer Date Recorded In the past 12 months, has l ack of transportation kept you from medical appts, meetings, work or from getting things needed for daily living? No 04/29/2023 Utilities Answer Date Recorded In the past 12 months, has t he electric, gas, oil or water company threatened to shut off services in your home? No 04/29/2023 Depression Answer Date Recorded Patient Health Questionnaire-2 Score 0 04/29/2023 Sex and Gender Information Value Date Recorded Sex Assigned at Male 03/12/2022 10:17 AM EDT Legal Sex Male 10:17 AM EDT Gender Identity Male 03/12/2022 10:17 AM EDT Sexual Orientation Choose not to disclose 2021 10:17 AM EDT Last Filed Vital Signs Vital Sign Reading Time Taken Comments Blood Pressure 123/72 02/14/2024 9:48 AM EDT Pulse 68 02/14/2024 9:48 AM EDT Temperature 36.2 ??C (97.2 ??F) 02/14/2024 9:48 AM ED T Respiratory Rate 20 02/14/2024 9:48 AM EDT Oxygen Saturation 98% 01/08/2024 11:11 AM EDT Inhaled Oxygen Concentration - - Weight 79.8 kg (176 lb) 02/14/2024 9:48 AM EDT Height 167.6 cm (5' 6 ) 02/14/2024 9:48 AM EDT Body Mass Index 28.41 02/14/2024 9:48 AM EDT Plan of Treatment Health Maintenance Due Date Last Done Comments Alcohol/Substance Use Screening 1995 Family Planning (PISQ) 1998 Hepatitis C Screening 2001 Hepatitis B Vaccines (1 of 3 - 19+ 3-dose series) 2002 COVID-19 Vaccine ( - 2023-2 5 season) 2024 Influenza Vaccine (#1) 2024 Depression Screening 04/29/2024 04/29/2023, 04/29/2023 SDOH Screening 04/29/2024 04/29/2023 Tobacco Screening 02/17/2025 02/18/2024 Lipid Panel 04/29/2028 04/29/2023, 03/27/2021, 03/20/2021 DTaP/Tdap/Td Vaccines (2 - T d or Tdap) 11/16/2031 11/15/2021 Zoster Vaccines (1 of 2) 2033 RSV Patients and Patients Aged 60 years or older (1 - 1-dose 75+ series) 2058 HIV Screening Completed 03/27/2021, 03/20/2021, 03/10/2021 HIB Vaccines Aged Out No longer eligi ble based on patient's age to complete this topic HPV Vaccines Aged Out No longer eligi ble based on patient's age to complete this topic Hepatitis A Vaccines Aged Out No long er eligible based on patient's age to complete this topic IPV Vaccines Aged Out No longer eligi ble based on patient's age to complete this topic Meningococcal Vaccine Aged Out No britta onofre eligible based on patient's age to complete this topic Pneumococcal Vaccine: Pediatrics (0 to 5 Years) and At-Risk Patients (6 to 64 Years) Aged Out No longer eligible b ased on patient's age to complete this topic RSV under 20 months Aged Out No longe r eligible based on patient's age to complete this topic Rotavirus Vaccines Aged Out No longer eligible based on patient's age to complete this topic Procedures Procedure Name Priority Date/Time Associated Diagnosis Comments LIPID PANEL, STANDARD Routine 04/29/2023 1:21 PM EST Healthcare maintenance HIV 1/2 ANTIGEN/ANTIBODY, FOURTH GENERATION W/RFL Routine 03/27/2021 10:29 AM EST from Last 3 Months or Most Recently Relevant to Health Maintenance Results * (ABNORMAL) Lipid Panel, Standard (04/29/2023 1:21 PM EST) Triglycerides 93 <150 mg/dL [facility] Comment:Desirable Triglyceri de: less than 150 mg/dLBorderline High Triglyceride 150-199 mg/dLHigh Triglyceride: 200-499 mg/dLVery High Triglyceride: greater than or equal to 5OO mg/dL Cholesterol 279(H) <200 mg/dL [facility] Comment:Desirable Cholestero l: less than 200 mg/dLBorderline High Cholesterol: 200-239 mg/dLHigh Cholesterol: greater than 239 mg/dL LDL Cholesterol Calculated 199(H) <100 mg/dL [facility] Comment:Desirable LDL: less than 100 mg/dLNear Optimal/Above Optimal LDL: 110- 129 mg/dLBorderline High LDL: 130-159 mg/dLHigh LDL: 160-189 mg/dLVery High LDL: greater than or equal to 190 mg/dL HDL Cholesterol 62 >40 mg/dL [facility] Comment:Desirable HDL: great er than 40 mg/dL Note: This HDL assay may give artificially low results in patients with liver disease. Blood Venous blood specimen / Unknown 04/29/2023 1:21 PM EST 04/29/2023 1:21 PM EST [facility] LAB BLOOD ORDERABLES Final Re sult Performing Organization Address City/[facility]/ZIP Co de Phone Number [facility] [address] [place] [address] [phone] * HIV 1/2 ANTIGEN/ANTIBODY,FOURTH GENERATION W/RFL (03/27/2021 10:29 AM EST) HIV-1/2 ANTIGEN AND ANTIBODIES, 4TH GENERATION W/ REFLEX NON-REACT [facility] NON-REACT [facility] Comment: HIV-1 antigen and HIV-1/HIV-2 antibodies were not detected. There is no laboratory evidence of HIV infection. ?? PLEASE NOTE: This information has been disclosed to you from records whose confidentiality may be protected by state law. ??If your state requires such protection, then the state law prohibits you from making any further disclosure of the information without the specific written consent of the person to whom it pertains, or as otherwise permitted by law. A general authorization for the release of medical or other information is NOT sufficient for this purpose. ? For additional information please refer to http://education.Filmmortal/faq/TFB211 (This link is being provided for informational/ educational purposes only.) ? The performance of this assay has not been clinically validated in patients less than 2 years old. ?? 03/27/2021 10:2 9 AM EST [facility] LAB BLOOD ORDERABLES Final Re sult Performing Organization Address City/[facility]/ZIP Co de Phone Number [facility] [address] from Last 3 Months or Most Recently Relevant to Health Maintenance Insurance [facility] C3 Care Teams Product Specialist Relationship Specialty Start Date End Date Crystal Bueno FNP [address] [place] [phone] PCP - General Family Medicine 03/10/21
--- OUTSIDE RECORDS SUMMARY | 2024-06-05 16:34 | XMS_ITS | Clinical Summary ---
[facility] Address [id number] [place] [id number] Care Team Providers Care Documentation Manager Name Role Phone Rut Johnson MD Primary Care Provider [phone] Family History Medical History Relation Name Comments No Known Problems Father Migraines Mother Relation Name Status Comments Father Alive Mother Alive Social History Tobacco Use Types Packs/Day Years Used Date Smoking Tobacco: Never Smokeless Tobacco: Never Alcohol Use Standard Drinks/Week Comments No 0 (1 standard drink = 0.6 oz pur e alcohol) Sex and Gender Information Value Date Recorded Sex Assigned at Not on file Gender Identity Not on file Sexual Orientation Not on file Obstetrics History Plan of Treatment Health Maintenance Due Date Last Done Comments DTaP,Tdap,and Td Vaccines (1 - Tdap) 2002 Hepatitis B Vaccines (1 of 3 - 19+ 3-dose series) 2002 Cholesterol Screening (Lipid Panel) 04/15/2022 Depression Screening 04/15/2022 HIV Screening 04/15/2022 Hepatitis C Screening 04/15/2022 Social Influencers of Health Screening 04/15/2022 COVID-19 Vaccine ( - 2023-2 5 season) 2024 Influenza Vaccine (#1) 2024 HIB Vaccines Aged Out No longer eligi [...] on patient's age to complete this topic MMR Vaccines Aged Out No longer eligi ble based on patient's age to complete this topic Meningococcal ACWY Vaccine Aged Out N o longer eligible based on patient's age to complete this topic Pneumococcal Vaccine: Pediat rics (0 to 5 Years) and At-Risk Patients (6 to 64 Years) Aged Out No longer eligible b ased on patient's age to complete this topic RSV Immunization Patients Un raven 20 months Aged Out No longer eligible b ased on patient's age to complete this topic Varicella Vaccines Aged Out No longer eligible based on patient's age to complete this topic Care Teams Documentation Manager Relationship Specialty Start Date End Date Rut Johnson MD PCP - General Internal Medicine 09/12/20
--- OUTSIDE RECORDS SUMMARY | 2024-06-05 16:34 | XMS_ITS | Encounter Summary ---
Author Organization [employer] Address [address] [facility] [address] [place] [address] Care Team Providers Care Otologist Name Role Phone Myles, [facility] Primary Care Provider [phone] Reason for Visit * Reason Onset Date Comments Nurse Triage 04/10/2023 Encounter Details Date Type Department Care Team ([facility] st Contact Info) Description 04/10/2023 Telephone [facility] [address] [place], [place] [phone] [facility] [address] [place], [place] [phone] Nurse Triage Social History Tobacco Use Types Packs/Day Years Used Date Smoking Tobacco: Never Assessed Sex and Gender Information Value Date Recorded Sex Assigned at Male 03/12/2022 10:17 AM EDT Legal Sex Male 10:17 AM EDT Gender Identity Male 03/12/2022 10:17 AM EDT Sexual Orientation Choose not to disclose 2021 10:17 AM EDT documented as of this encounter Miscellaneous Notes * Telephone Encounter - Carol Herrera RN - 04/10/2023 3:16 PM EST T/C to pt who states that 3 days ago he began to have numbness and 7/10 pain on the left side of his face and left shoulder/arm. Pt states that he is also having some intermittent mild chest pain. Ptstates that today he is also unable to lift his left arm with full ROM. Pt denies dizziness, or blurry vision but based on these symptoms pt is advised to go the ER at this time. Pt is agreeable. Will forward to PCP as FYI * Telephone Encounter - Brooklyn Phillips - 04/10/2023 2:44 PM EST Symptom: Abdominal Pain - Male Outcome: Schedule an urgent appointment (within 4 hours) or talk to a nurse or provider soon Reason: Getting worse The caller accepted this outcome Please contact pt spouse at [phone] documented in this encounter Plan of Treatment Not on file documented as of this encounter Visit Diagnoses Not on filedocumented in this encounter Care Teams Otologist Relationship Specialty Start Date End Date Crystal Bueno FNP [address] [place] [phone] PCP - General Family Medicine 03/10/21 documented as of this encounter
--- OUTSIDE RECORDS SUMMARY | 2024-06-05 16:34 | XMS_ITS | Encounter Summary ---
Author Organization [employer] Address [address] [facility] [address] [place] [address] Care Team Providers Care Supervisor Remelt Name Role Phone Myles, [facility] Primary Care Provider Reason for Visit * Reason Onset Date Comments Nurse Triage 01/30/2023 Encounter Details Date Type Department Care Team ([facility] st Contact Info) Description 01/30/2023 Telephone [facility] [address] [place], [place] [phone] [place] [facility] [address] [place], [place] [phone] Nurse Triage Social History Tobacco Use Types [...] encounter Miscellaneous Notes * Telephone Encounter - Roxanna Duarte RN - 01/30/2023 1:43 PM EDT Triage call Pt has numerous concerns at time of call. Abdominal pain having hx of surgery. Sweating, shakiness, hard to stand for any period of time. Pressure in Pt head with pain in neck which started 4 days ago Pt has lost weight a month ago weighed 180lbs and now weighs 150-155lbs. Appetite is poor. Pt is neg for fever, cough, ROBERT symptoms. Pt has continued to go to work and do daily activities. Pt sounds very anxious while describing symptoms. Pt is advised to come to [facility] today after Pt gets out of work at 300pm. Pt agrees to come to [facility] hours given closes at 800pm. Protocol Used: Abdominal Pain - Male (Adult) Protocol-Based Disposition: See in Office or Video Visit Today Video visit not offered Positive Triage Question: * Patient wants to be seen * All higher-acuity triage questions were negative Care Advice Discussed: * Drink Clear Fluids * Reasons To Call Back - Severe pain lasts over 1 hour - Constant pain lasts over 2 hours - Intermittent pains (e.g., comes and goes, cramps) lasts over 48 hours - You become worse * Telephone Encounter - Beau Guaman - 01/30/2023 12:58 PM EDT Symptoms: Abdominal Pain - Male, Loss of Appetite Outcome: Talk to a nurse or provider within 15 minutes Reason: Severe pain now The caller accepted this outcome Any question best number to reach pt is [phone] documented in this encounter Plan of Treatment Not on file documented as of this encounter Visit Diagnoses Not on filedocumented in this encounter Care Teams Supervisor Remelt Relationship Specialty Start Date End Date Crystal Bueno FNP [address] [place] [id number] PCP - General Family Medicine 03/10/21 documented as of this encounter
--- OUTSIDE RECORDS SUMMARY | 2024-06-05 16:34 | XMS_ITS | Encounter Summary ---
Author Organization [employer] Address [address] [place] [address] Care Team Providers Care Rn Ccu Name Role Phone [facility] Primary Care Provider [phone] Reason for Visit * Reason Onset Date Comments Error 05/15/2023 Encounter Details Date Type Department Care Team ([facility] st Contact Info) Description 05/15/2023 Telephone [facility] [address], [place] [phone] [place] [facility] [address], [place] [phone] Error Social History Tobacco Use Types Packs/Day Years Used Date Smoking Tobacco: Never Depression Answer Date Recorded Patient Health Questionnaire-9 [...] AM EDT documented as of this encounter Plan of Treatment Not on file documented as of this encounter Visit Diagnoses Not on filedocumented in this encounter Additional Health Concerns Assessment Noted Time PHQ-9 Depression Total Score: 0 04/29/20 23 11:50 AM EST documented as of this encounter Care Teams Rn Ccu Relationship Specialty Start Date End Date Crystal Bueno FNP [address] [place] [phone] PCP - General Family Medicine 03/10/21 documented as of this encounter
== END 2024-06-05 16:33 | disposition home or self-care (01) ==
LOC: HO.HUSH 15:43
PROVIDERS: PCP Registered Nurse; Visit Provider Urology
DX: R07.81 Pleurodynia (principal)
CPT/HCPCS: 99203

== ENCOUNTER → 2024-06-05 15:43 | Outpatient (BNVA) | payer MEDICAID, SELFPAY | PROVIDERS: PCP Registered Nurse; Visit Provider Urology | DX: R07.81 Pleurodynia (principal) | CPT/HCPCS: 99202 ==